=== PATIENT | female | born 1980 | race Two or more races ===

== ENCOUNTER 2023-07-19 15:13 | Emergency (ER) | payer OTHER ==
[2023-07-19 15:48] VITALS: BP 135/75; PULSE 71; RESP 16; TEMP 100; BMI 32.0
[2023-07-19] MEDS ORDERED: IBUPROFEN 600 MG TABLET (FP) PO ONE ×2 (18:26→18:32)
== END 2023-07-19 18:33 | disposition home or self-care (01) ==
LOC: FER 15:13
DX: S13.4XXA Sprain of ligaments of cervical spine, initial encounter (principal); M79.641 Pain in right hand; M54.2 Cervicalgia; S60.311A Abrasion of right thumb, initial encounter; S50.812A Abrasion of left forearm, initial encounter; V47.5XXA Car driver injured in collision with fixed or stationary object in traffic accident, initial encounter; Y92.410 Unspecified street and highway as the place of occurrence of the external cause
CPT/HCPCS: 71046-TC-FY; 72125-TC; 73130-TC-RT-FY; 99284-25